=== PATIENT | male | born 1990 | race African-American/Black ===

== ENCOUNTER 2018-04-20 19:57 | Emergency (ER) | payer SELFPAY ==
[~2018-04-20] VITALS: Ht 182.9 cm; Wt 84.0 kg
[2018-04-21 00:20] VITALS: BP 131/79
== END 2018-04-21 00:24 | disposition home or self-care (01) ==
LOC: ER 19:57
DX: S10.93XA Contusion of unspecified part of neck, initial encounter (principal); W03.XXXA Other fall on same level due to collision with another person, initial encounter; Y93.61 Activity, american tackle football; Y92.39 Other specified sports and athletic area as the place of occurrence of the external cause
CPT/HCPCS: 72040; 99284

== ENCOUNTER 2023-07-31 12:44 | Emergency (ER) | payer OTHER ==
[~2023-07-31] VITALS: Ht 188 cm; Wt 82.0 kg
[2023-07-31 13:05] VITALS: BP 112/74; O2SAT 99
[2023-07-31] MEDS ORDERED: NAPROXEN 250MG TABLET PO ONE (15:15)
[2023-07-31] MEDS ORDERED: IBUP-2030 MT (15:49)
[2023-07-31 16:20] VITALS: PULSE 60; RESP 16; TEMP 98.6
== END 2023-07-31 16:21 | disposition home or self-care (01) ==
LOC: ER 12:44
DX: S63.610A Unspecified sprain of right index finger, initial encounter (principal); X58.XXXA Exposure to other specified factors, initial encounter; Y93.89 Activity, other specified; Y92.89 Other specified places as the place of occurrence of the external cause; Y99.8 Other external cause status
CPT/HCPCS: 73140; 99283